=== PATIENT | male | born 1990 | race Caucasian/White ===

== ENCOUNTER 2025-03-20 12:16 | Outpatient (AMB) | payer BC, SELFPAY ==
[2025-03-20 12:32] VITALS: BP 142/92; PULSE 87; RESP 16; TEMP 36.1; O2SAT 97; BMI 44.8
--- NOTE | 2025-03-20 12:32 | MHC.OFFVIS ---
Vital Signs 03/20/25 12:32 Height 5 ft 4 in Weight 261 lb BMI 44.8 BP 142/92 H Blood Pressure Location Rt brachial Position Sitting Respiration 16 Pulse 87 Pulse Source Pulse Oximeter Temp 97 F Pulse Oximetry (%) 97 Intake Visit Reasons: ENP-Migraine Allergies amoxicillin Allergy (Unknown, Verified 03/20/25 12:35) Unknown penicillin G Allergy (Unknown, Verified 03/20/25 12:35) unknown HPI Comments Details: Gigi is a 35-year-old male patient with a past medical history of asthma, carpal tunnel syndrome, cervical stenosis, migraine, hypertension, and obesity who is here today to establish care. I was previously following him at [facility]. When I initially started seeing him he was having headaches accompanied by vision changes, retro-orbital pain, periorbital numbness and tingling, light sensitivity, imbalance, nausea, generalized weakness, and intermittent facial drooping. I have used a combination of topiramate and tizanidine in the past to help get headaches under control in combination with intermittent nerve blocks. We had great success with the therapies in controlling his migraines. He tells me today that he has actually come off of the topiramate and tizanidine due to some other health concerns including hypertension since I last saw him he has seen somewhat of an uptake in his headaches. He has started candesartan with good control of blood pressure though only marginal improvement with his headaches on this medication. He has had most relief with nerve blocks and trigger point injections and hopes for these again today. His current headaches are occurring on a near daily basis to the occipital areas radiating to the front. He has light and sound sensitivity and nausea at times and sometimes can feel dizziness. He has more severe type headaches approximately twice per month but they can last 2-3 days. These can be debilitating accompanied with generalized fatigue and overall feeling of being unwell. He is no longer having any visual changes. Headaches at current are slightly more frequent and intense than when he has had nerve blocks in the past. His last nerve block was 08/04/2024. Past medication trials: Topiramate-some benefit but with possible increases in blood pressure Tizanidine- some benefit but with possible increases in blood pressure Candesartan-partial possible benefit but no significant relief His prior workup has included: CT of the brain 05/2023: Some sinus disease but otherwise normal brain. MRI of the brain 07/22/2023: Within normal limits MRA/MRV 06/20/2023: Within normal limits Ophthalmology evaluation: Subtle raised nasal disc rim tissue bilaterally without any obscured blood vessels or concern for true IIH Review of Systems Const All systems reviewed & are unremarkable except as noted in HPI and below Physical Exam Vital Signs: Last Vital Signs Temp 97 F 03/20/25 12:32 Pulse 87 03/20/25 12:32 Resp 16 03/20/25 12:32 BP 142/92 H 03/20/25 12:32 Pulse Ox 97 03/20/25 12:32 BMI result Body Mass Index 44.8 Const General: cooperative, healthy appearing, comfortable and no acute distress Nutritional Appearance: well nourished Orientation/consciousness: patient oriented x3 Limitations: no limitations HEENT Head: Yes normal to inspection and Yes normocephalic Eyes General: appearance normal, both eyes and all related structures Visual Fatima: normal visual fatima by confrontation Alignment and Position: alignment normal Periorbital: periorbital findings normal Eyelids: Yes eyelids normal Conjunctivae: conjunctivae normal Sclerae: sclerae normal Direct Ophthalmoscopy: normal light reflex, no papilledema and fundi normal bilaterally Neck Neck: Yes normal visual inspection and Yes full ROM General: Yes no CVA tenderness Back/Spine/Pelvis Other: Bilateral occipital notch tenderness and bilateral trigger points Back: no CVA tenderness Cervical Spine: normal cervical lordosis Thoracic/Lumbar Spine: thoracic and lumbar spine normal to inspection Neuro General: patient oriented x3 and deep tendon reflexes 2+ bilaterally Cranial nerves: Yes CN's II-XII intact bilaterally and Yes Facial sensation intact/muscles of mastication intact Cognition (Neuro): normal cognition Gait exam (Neuro): Normal gait present Motor exam (neuro): 5/5 motor strength present throughout and no tremor noted Sensory Exam: double simultaneous stimulation for sensation normal Romberg Test: Negative Pupils: Normal pupillary reactivity/response: bilateral Psych Appearance: grossly normal Mental Status: mental status grossly normal Speech and movement: Normal speech and movement present and Clear speech present Affect: normal affect Attitude: cooperative Thought process: Normal thought process present Thought content: Normal thought content present Insight: Good insight present (Psych) Judgement: Good judgement present (Psych) Office Procedures Nerve Block Details: Bilateral Greater Occipital Nerve block procedure: Laterally: Bilateral Indications: Occipital neuralgia Current allergies and current list of medications were reviewed prior to procedure, verbal consent was obtained, procedure was explained in detail to the patient prior to starting. Time-out was performed prior to procedure. Following universal hygiene protocols, patient's left occipital area was located by drawing a line between the external occipital protuberance and the mastoid process. The greater occipital nerve was located approximately 2/3 along this straight line edger to the occiput, and corresponded with the point of maximum tenderness. Alcohol was applied topically to the skin. A 27 gauge needle (aspirating during insertion) was inserted at a 45 degree angle until just above the periosteum. The providers selected agent (s)/medications (as documented in this note) were injected on the left side (directing needle to center, left and right of painful focus any fanning technique). Pressure with gauze pad was held briefly upon the site of puncture to minimize bleeding and to further spread anesthetic subcutaneously. The procedure was repeated on the right side. The patient was monitored for 15 minutes after the procedure and no complications were observed. Post procedure care was reviewed with the patient including application of ice intermittently to the injection sites over the course of the day to reduce inflammation. CPT: 57200-Tevokae Occipital Procedure code (CPT) selection complete Therapeutic Injection Therapeutic Injection Details: Trigger point injection procedure: Laterally:bilateral Indications: Chronic headaches, myofascial pain Following universal hygiene protocol, after explaining the risks and benefits as well as hazards of the procedure to the patient, consent was signed and placed in the chart. Time-out prior to starting the procedure was performed. The areas over the bilateral trapezius muscles were cleansed with alcohol. 2 Sites in each trapezius muscle injected with a 27 gauge 1.5 in needle with myofascial spasm. Patient tolerated the procedure well, localized bleeding was controlled. Patient monitored in the clinic for 15 minutes for complications. Patient was discharged home with instructions to apply ice to the back of their head as needed. 18015-[id number] Point Injection 3 or more All charges added?: Procedure code (CPT) selection complete Office Meds bupivacaine (PF) 0.5 % (5 mg/mL) injection solution Performing Provider: Cheryl Christopher CNP Performing Location: [facility] [place] [facility] Administered by: Cheryl Christopher CNP on 03/23/25 16:30 Dose Route Admin Location Dispensed Lot Number Expiration Date [facility] [place] [employer] 6 mL Infiltration 10 mL [id number] [employer] Total Dispensed Waste 10 mL 40 % bupivacaine (PF) 0.5 % (5 mg/mL) injection solution Performing Provider: Cheryl Christopher CNP Performing Location: [facility] [place] [facility] Administered by: Cheryl Christopher CNP on 03/23/25 16:30 Dose Route Admin Location Dispensed Lot Number Expiration Date [facility] [place] [employer] 4 mL Infiltration 10 mL [id number] [employer] Total Dispensed Waste 10 mL 60 % Assessment & Plan Assessment & Plan (1) Muscle pain, myofascial: Code(s): M79.18 - Myalgia, other site Category: Medical (2) Trigger point of left shoulder region: Code(s): M25.512 - Pain in left shoulder Category: Medical (3) Chronic migraine without aura without status migrainosus, not intractable: Code(s): G43.709 - Chronic migraine without aura, not intractable, without status migrainosus Category: Medical Plan Gigi is a 35-year-old male patient with a past medical history of asthma, carpal tunnel syndrome, cervical stenosis, migraine, hypertension, and obesity who is here today to establish care. I was treating her at [facility] with topiramate, tizanidine, and as-needed nerve blocks/trigger point injections. He has since come off of the topiramate and tizanidine with some notable increase in his headaches but he has had overall best relief with occipital nerve block and trigger point injections. We did perform them in office today without any complications. In place of his topiramate and tizanidine, I would like to start a once monthly anti CGRP therapy provided that he has tried numerous agents with either adverse effects or without success. I will submit for request of Ajovy 225 mg monthly. -Ajovy 225 mg monthly -occipital nerve block and trigger point injections performed in office today -follow up in 1 month or sooner if needed Orders: Orders AMB Trigger Point Injection 03/20/25 G43.709 - Chronic migraine without aura, not intractable, without status migrainosus, M25.512 - Pain in left shoulder, M79.18 - Myalgia, other site AMB Nerve Block 03/20/25 G43.709 - Chronic migraine without aura, not intractable, without status migrainosus, M25.512 - Pain in left shoulder, M79.18 - Myalgia, other site Medications: New fremanezumab-vfrm (Ajovy) 225 mg (1.5 mL) subcut QMONTH 1.5 mL 5RF Coding Level of Care Code Est Pt Level 5 (77583) Diagnoses Muscle pain, myofascial M79.18 Trigger point of left shoulder region M25.512 Chronic migraine without aura without status migrainosus, not intractable G43.709 CPT Codes Nerve Block - CPT: 74556-Uylwikv Occipital ([id number]) Therapeutic Injection - Ther Injection 2: [id number] Point Injection 3 or more ([id number])
== END 2025-03-20 13:09 | disposition home or self-care (01) ==
PROVIDERS: PCP Nurse Practitioner Family; Visit Provider Nurse Practitioner
DX: G43.709 Chronic migraine without aura, not intractable, without status migrainosus (principal); M79.18 Myalgia, other site; M25.512 Pain in left shoulder
CPT/HCPCS: 20553; 64405; 99214

== ENCOUNTER → 2025-03-20 12:16 | Outpatient (BNVA) | payer BC, SELFPAY | PROVIDERS: PCP Nurse Practitioner Family; Visit Provider Nurse Practitioner | DX: G43.709 Chronic migraine without aura, not intractable, without status migrainosus (principal); M25.512 Pain in left shoulder; M79.18 Myalgia, other site | CPT/HCPCS: 20553; 64405; J0665 ==